=== PATIENT | female | born 1995 | race Caucasian/White ===

== ENCOUNTER 2020-01-14 17:18 | Outpatient (CLI) | payer OTHER ==
[2020-01-14] MEDS ORDERED: SODIUM CHLORIDE FLUSH 0.9% 10 ML SYRINGE IVP PRN (18:05)
[2020-01-14] MEDS ORDERED: miSOPROStoL 100 MCG TABLET BC SCH (18:15)
[2020-01-14 22:33] VITALS: BP 106/69
--- NOTE | 2020-01-16 11:37 | PROVIDER PROGRESS NOTE ---
- HPI Current : Current 2 Vital Signs Temperature 98.4 F 01/14/20 19:00 Heart Rate 89 01/14/20 19:00 Respiratory Rate 18 01/14/20 19:00 Blood Pressure 121/68 01/14/20 19:00 O2 Saturation 100 01/14/20 19:00 Temperature 98.4 F 01/14/20 19:00 Heart Rate 74 01/14/20 22:15 Respiratory Rate 18 01/14/20 22:15 Blood Pressure 106/69 01/14/20 22:15 O2 Saturation 100 01/14/20 22:15 - Exam GEN: NAD CV: RR RESP: normal effort SVE: 2/60/-2 EFM:140 mod pratik 15x15 accels no decel TOCO: irritable Vertex by bedside us - Procedures OB Procedure Performed: NST Diagnosis/Indication for NST: Other (outpatient cervical ripening) NST Procedure: EFM: 140 mod pratik 15x15 accels no decel TOCO: irritable Service Date of procedure: 01/14/20 Procedure Details: Outpatient cervical ripening Confirmed verex by bedside US Consent obtained Misoprostol 50 mcg BC Observe with extended monitoring x 4 hours If not in labor and does nto ahve advanced cervical dilation at 4 hours, then DC home for in-patient IOL 01/15/20 Cat I tracing
== END 2020-01-14 23:10 | disposition home or self-care (01) ==
LOC: FBP 17:18 → WFO 17:18 → FBP 17:20 → WFO 23:10
PROVIDERS: ATTEND Obstetrics & Gynecology
DX: O48.0 Post-term pregnancy (principal); Z3A.41 41 weeks gestation of pregnancy
CPT/HCPCS: 99213; A9270; 85025

== ENCOUNTER 2020-01-15 07:42 | Inpatient (IN) | payer OTHER ==
--- NOTE | 2020-01-15 09:21 | HISTORY & PHYSICAL EXAMINATION ---
Admit History - Visit Reason Visit Reason: Other (Post-dates induction of labor) - : 2 Parity: 1 Care: positive: Other (Transfer of care for NHGA at 39 wga) Risk/History: positive: Other (suspected macrosomia) Complications This : positive: None Smoking Status: Former smoker - Mother's Labs Mother's Blood Type: positive: A Mother's RH: positive: Positive GBS: positive: Group B Strep Positive Rubella Status: positive: Immune - Other Maternal History Other Maternal History: nitial U/S: 06/13/2019 @ 9.3wks c/w LMP dating. A pos/Rubella immune Genetic testing: not performed FAS: 08/21/2019 WNL. Posterior placenta, no previa. 3VC. Size c/w dating. BHASKAR WNL. Glucola 83 TDAP 12/15/2019 GBS POSITIVE HSV: denies Breast pump Rx previously provided MOD: Anticipate ; expecting a girl - Justyn; desires epidural for pain management Meds/Allgy - Allergies Allergies/Adverse Reactions: Allergies Allergy/AdvReac Type Severity Reaction Status Date / Time No Known Drug Allergies Allergy Verified 01/15/20 09:28 Review of Systems - Other Findings Other Findings: As per HPI otherwise remaining systems are negative. Physical - Abdominal Exam Vital Signs: 98.2 91 123/72 18 100 Contraction Frequency (min/apart): irreg Contraction Intensity: positive: Mild to moderate - Monitoring Heart Rate Baseline: 140 Strip Review: positive: Category I - Presentation Presentation: positive: Vertex - Vaginal Exam Membranes: positive: Membranes intact Dilation (in cm): 3 Plan for Labor - Plan For Labor Plan for Labor: IOL: Received misoprostol 50 mcg BCx1 outpatient Will continue with 1-2 doses of miso and then re-check for favorability Start pitocin when favorable GBS positive: start ampicillin when active, ruptured, or with coronado balloon placement FWB: vertex, Cat I tracing, GBS positive, suspected macrosomia -CEFM -Ampicillin per GBs ppx PAIN: Epidural as desired -No nitrous during COVID pandemic -Fentanyl prior to epidural, max cumulative dose 200 mcg and not be given after 7 cm Observation for cervical ripening and convert to in-patient admission when active
[2020-01-15] MEDS ORDERED: SODIUM CHLORIDE FLUSH 0.9% 10 ML SYRINGE IVP PRN (09:31)
[2020-01-15] MEDS ORDERED: METOCLOPRAMIDE 10 MG TABLET PO PRN (09:31)
[2020-01-15] MEDS ORDERED: CARBOPROST TROMETHAMINE 250 MCG/ML AMP IM PRN (09:31)
[2020-01-15] MEDS ORDERED: OXYTOCIN/SODIUM CHLORIDE 500 ML IV PRN (09:31)
[2020-01-15] MEDS ORDERED: ONDANSETRON 4 MG/2 ML VIAL IVP PRN (09:31)
[2020-01-15] MEDS ORDERED: ONDANSETRON ODT 4 MG TABLET TL PRN (09:31)
[2020-01-15] MEDS ORDERED: METHYLERGONOVINE 0.2 MG/ML VIAL IM PRN (09:31)
[2020-01-15] MEDS ORDERED: fentaNYL 100 MCG/2 ML VIAL IVP PRN (09:31)
[2020-01-15] MEDS ORDERED: miSOPROStoL 200 MCG TABLET PR PRN ×2 (09:31)
[2020-01-15] MEDS ORDERED: TERBUTALINE 1 MG/ML VIAL SUBQ PRN (09:31)
[2020-01-15] MEDS ORDERED: ACETAMINOPHEN 325 MG TABLET PO PRN (09:31)
[2020-01-15] MEDS ORDERED: METOCLOPRAMIDE 10 MG/2 ML VIAL IVP PRN (09:31)
[2020-01-15] MEDS ORDERED: OXYTOCIN/SODIUM CHLORIDE 500 ML IV SCH (10:00)
[2020-01-15] MEDS: miSOPROStoL 100 MCG TABLET BC SCH ×3 (11:09→21:14)
[2020-01-15 11:13] LABS: BASOPHILS % (AUTO) 0.2 %; EOSINOPHILS # (AUTO) 0.1 10^3/uL (0.0-0.7); EOSINOPHILS % (AUTO) 0.4 %; HGB - HEMOGLOBIN 11.4 g/dL (12.0-16.0); LYMPHOCYTES % (AUTO) 17.8 %; MEAN CORPUSCULAR HEMOGLOBIN 25.7 pg (27.0-31.0); MEAN CORPUSCULAR HGB CONC 31.4 g/dL (32.0-36.0); MEAN CORPUSCULAR VOLUME 81.8 fL (81.0-99.0); MEAN PLATELET VOLUME 10.9 fL (7.9-10.8); MONOCYTES % (AUTO) 8.6 %; NEUTROPHILS # (AUTO) 8.2 10^3/uL (1.5-6.6); NEUTROPHILS % (AUTO) 72.2 %; PLT - PLATELET COUNT 253 10^3/uL (130-450); RED BLOOD COUNT 4.44 10^6/uL (4.20-5.40); RED CELL DISTRIBUTION WIDTH 15.2 % (12.0-15.0); WHITE BLOOD COUNT 11.3 x10^3/uL (4.8-10.8)
--- NOTE | 2020-01-15 11:32 | PROVIDER PROGRESS NOTE ---
Subjective - Prog Note Date Prog Note Date: 01/15/20 Prog Note Time: 11:29 - Subjective Pt reports feeling: Improved Subjective: Pt is here for cervical ripening. She has received her first dose. She is 41 weeks. last child weighed 9lb 8 oz. Group B pos Objective - Lab Results Fish Bones: 01/15/20 11:05 Other Labs: Lab Results x24hrs 01/15/20 Range/Units 11:05 WBC 11.3 H (4.8-10.8) x10^3/uL RBC 4.44 (4.20-5.40) 10^6/uL Hgb 11.4 L (12.0-16.0) g/dL Hct 36.3 L (37.0-47.0) % MCV 81.8 (81.0-99.0) fL MCH 25.7 L (27.0-31.0) pg MCHC 31.4 L (32.0-36.0) g/dL RDW 15.2 H (12.0-15.0) % Plt Count 253 (130-450) 10^3/uL MPV 10.9 H (7.9-10.8) fL Neut # (Auto) 8.2 H (1.5-6.6) 10^3/uL Lymph # (Auto) 2.0 (1.5-3.5) 10^3/uL [place] # (Auto) 1.0 (0.0-1.0) 10^3/uL Eos # (Auto) 0.1 (0.0-0.7) 10^3/uL Baso # (Auto) 0.0 (0.0-0.1) 10^3/uL Absolute Nucleated RBC 0.00 x10^3/uL Nucleated RBC % 0.0 /100WBC Assessment/Plan - Problem List (1) 41 weeks gestation of Impression: cervical ripening Misoprostil, Cook, pit, AROM (2) GBS (group B Streptococcus carrier), +RV culture, currently Impression: Start Antibiotics when inlabor or ruptured.
--- NOTE | 2020-01-15 16:28 | PROVIDER PROGRESS NOTE ---
Labor Progress Note - Uterine Monitoring Contraction Frequency (min/apart): 2.5-4 Contraction Intensity: positive: Mild Uterine Resting Tone: positive: Soft - Monitoring Monitor Mode: positive: External ultrasound Heart Rate Baseline: 140 Heart Rate Variability: positive: Minimal (0-5 bpm) Accelerations: positive: Present, 15x15 Decelerations: positive: Variable (minimal) Strip Review: positive: Category I - Labor Progress Note Labor Progress Note/Additional Text: Pt has received 2 doses of misoprostal. Slow progress. needs additional Miso.
[2020-01-15] MEDS ORDERED: SODIUM CHLORIDE FLUSH 0.9% 10 ML SYRINGE IVP SCH (17:00)
[2020-01-16] MEDS ORDERED: LACTATED RINGERS 1,000 ML IV ONE (00:54)
[2020-01-16] MEDS ORDERED: OXYTOCIN/SODIUM CHLORIDE 500 ML IV ONE (00:55)
[2020-01-16] MEDS: LACTATED RINGERS 1,000 ML IV SCH ×2 (01:08→09:22)
[2020-01-16] MEDS ORDERED: AMPICILLIN 2 GM in SODIUM CHLORIDE 0.9% MINIBAG 100 ML IV SCH (03:00)
--- NOTE | 2020-01-16 04:14 | ANESTHESIA ---
Pre-Anesthesia VS, & Labs - Diagnosis active labor - Procedure vaginal delivery Vital Signs: Temp Pulse Resp BP Pulse Ox 36.7 C 84 16 98/51 L 100 01/16/20 01:00 01/16/20 01:00 01/16/20 01:00 01/16/20 01:00 01/15/20 17:02 Height 5 ft 7 in Weight (kg) 118.841 kg - NPO Other (clear liquids) - Is Patient ?: Yes - Lab Results Current Lab Results: Laboratory Tests 01/15/20 11:05: WBC 11.3 H, RBC 4.44, Hgb 11.4 L, Hct 36.3 L, MCV 81.8, MCH 25.7 L, MCHC 31.4 L, RDW 15.2 H, Plt Count 253, MPV 10.9 H, Neut # (Auto) 8.2 H, Lymph # (Auto) 2.0, [place] # (Auto) 1.0, Eos # (Auto) 0.1, Baso # (Auto) 0.0, Absolute Nucleated RBC 0.00, Nucleated RBC % 0.0 Fish Bones: 01/15/20 11:05 Home Medications and Allergies Active Medications Acetaminophen (Tylenol) 650 mg PO Q6H PRN PRN Reason: Pain or Fever Fentanyl (Fentanyl) 50 mcg IVP Q1H PRN PRN Reason: PAIN Lactated Ringer's (Lr) 1,000 mls @ 100 mls/hr IV .Q10H [facility] Last Admin: 01/16/20 01:08 Dose: 100 mls/hr Oxytocin/Sodium Chloride (Pitocin/Sodium Chloride) 500 mls @ 1 mls/hr IV TITR YASMIN; Protocol Last Admin: 01/16/20 01:14 Dose: 1 milliunit/min, 1 mls/hr Oxytocin/Sodium Chloride (Pitocin/Sodium Chloride) 500 mls @ 999 mls/hr IV PRN PRN; Protocol PRN Reason: POST- HEMORR PREVENTION Ampicillin Sodium 1 gm/ Sodium (Chloride) 50 mls @ 200 mls/hr IV Q4HR [facility] Methylergonovine Maleate (Methergine Inj) 0.2 mg IM Q4HR PRN PRN Reason: Post- Hemorrhage Metoclopramide HCl (Reglan) 10 mg PO Q6H PRN PRN Reason: Nausea / Vomiting Metoclopramide HCl (Reglan Inj) 10 mg IVP Q6H PRN PRN Reason: Nausea / Vomiting Misoprostol (Cytotec) 50 mcg BC Q4HR [facility] Last Admin: 01/15/20 21:14 Dose: 50 mcg Ondansetron HCl (Zofran Inj) 4 mg IVP Q4HR PRN PRN Reason: Nausea / Vomiting Ondansetron HCl (Zofran Odt) 4 mg TL Q4HR PRN PRN Reason: Nausea / Vomiting Sodium Chloride (Normal Saline Flush 0.9%) 10 ml IVP 0100,0900,1700 [facility] Last Admin: 01/16/20 01:08 Dose: 10 ml Sodium Chloride (Normal Saline Flush 0.9%) 10 ml IVP PRN PRN PRN Reason: NEEDED PER PROVIDER ORDERS Terbutaline Sulfate (Terbutaline) 0.25 mg SUBQ Q1H PRN PRN Reason: tachysytole Allergies/Adverse Reactions: Allergies Allergy/AdvReac Type Severity Reaction Status Date / Time No Known Drug Allergies Allergy Verified 01/15/20 09:28 Anes History & Medical History - Anesthetic History Anesthesia Complications: reports: No previous complications - Medical History Cardiovascular: reports: None Pulmonary: reports: None Gastrointestinal: reports: None Urinary: reports: None Neuro: reports: None Musculoskeletal: reports: None Endocrine/Autoimmune: reports: None Blood Disorders: reports: None Skin: reports: None Smoking Status: Former smoker (quit 3 years ago) Psychosocial: reports: No issues indicated - Obstetrical History : 2 Parity: 1 Events: positive: None Complications: positive: None Exam General: Alert, Oriented x3, Cooperative, No acute distress Dental: WNL Mouth Openin Fingerbreadth Neck Mobility: Normal Mallampati classification: III Mental/Cognitive Status: Alert/Oriented X3, Normal for patient Plan Anesthesia Type: Epidural Consent for Procedure(s) Verified and Reviewed: Yes Code Status: Attempt Resuscitation ASA classification: 2-Mild systemic disease Is this case an emergency?: No
[2020-01-16] MEDS ORDERED: NALBUPHINE 10 MG/ML AMP IVP PRN (04:37)
[2020-01-16] MEDS ORDERED: ROPIVACAINE 0.2% 200 MG/100 ML BAG EP PRN (04:37)
[2020-01-16] MEDS ORDERED: ePHEDrine 50 MG/ML VIAL IVP PRN (04:37)
[2020-01-16] MEDS ORDERED: ONDANSETRON 4 MG/2 ML VIAL IVP PRN (04:37)
[2020-01-16] MEDS ORDERED: NALOXONE 0.4 MG/ML VIAL IVP PRN (04:37)
[2020-01-16] MEDS ORDERED: SODIUM CHLORIDE 0.9% IV SCH (07:00)
[2020-01-16] MEDS ORDERED: AMPICILLIN IV SCH (07:00)
[2020-01-16] MEDS ORDERED: OXYTOCIN 10 UNIT/ML VIAL IM ONE (10:27)
[2020-01-16] MEDS ORDERED: OXYTOCIN 10 UNIT/ML VIAL ONE (10:27)
[2020-01-16] MEDS ORDERED: miSOPROStoL 200 MCG TABLET ONE (10:27)
[2020-01-16] MEDS ORDERED: METHYLERGONOVINE 0.2 MG/ML VIAL ONE (10:28)
[2020-01-16] MEDS ORDERED: TRANEXAMIC ACID 1,000 MG/10 ML VIAL ONE (10:37)
[2020-01-16] MEDS ORDERED: ceFAZolin 2 GM in SODIUM CHLORIDE 0.9% 100ML 100 ML IV STA (10:45)
[2020-01-16] MEDS: miSOPROStoL 100 MCG TABLET BC SCH (11:22)
[2020-01-16] MEDS ORDERED: SIMETHICONE CHEW 80 MG TABLET PO PRN (11:25)
[2020-01-16] MEDS ORDERED: DOCUSATE SODIUM 100 MG CAPSULE PO PRN (11:25)
[2020-01-16] MEDS ORDERED: TRANEXAMIC ACID 1,000 MG in SODIUM CHLORIDE 0.9% 100ML 100 ML IV STA (11:26)
[2020-01-16] MEDS ORDERED: LACTATED RINGERS 1,000 ML IV SCH (12:00)
[2020-01-16] MEDS ORDERED: ACETAMINOPHEN 500 MG TABLET PO SCH (12:00)
--- NOTE | 2020-01-16 12:00 | DELIVERY NOTE ---
Delivery Note - Labor Labor: positive: Induced by oxytocin - Infant Delivery Method Delivery Method: positive: Spontaneous vaginal delivery - Cervical Ripening Method Cervical Ripening Method: positive: Misoprostil - Presentation Presentation: positive: Vertex - Nuchal Cord Nuchal Cord: positive: None - Anesthetic Anesthetic Type: - Amniotic Fluid Description Amniotic Fluid Description: positive: Clear - Episiotomy Type Episiotomy Type: positive: None - Laceration Laceration: positive: None - Delivery Outcome Delivery Outcome: positive: Livebirth - [place]: positive: Placed in direct skin contact with mother, Stimulated, [place] used [place] sex: positive: Female - Cord Cord: positive: 3 vessels - Placenta Placenta: positive: Intact, Expressed - Estimated Blood Loss Estimated Blood Loss (in cc): 600 - Post Delivery Events Post Delivery Events: positive: Hemorrhage - Delivery Comments (Free Text/Narrative) Delivery Comments (Free Text/Narrative): Patient is a 24 yo admitted at 41w1 for post dates induction of labor. She had received one dose of misoprostol 50 mcg BC as an outpatient on 01/14/20 and was observed for 4 hours. She then presented for induction of labor. She received 3 additional doses of misoprostol. She was then started on pitocin to max dose of 3 mU/min. She had an epidural for pain management. Cat I tracing throughout. Noted to be complete at 10:07 am. Membranes were intact at time of complete dilation and were protruding at the introitus. Membranes ruptured when under buttocks draping was placed to begin second stage. STAGE II: Patient pushed well for 11 minutes to deliver a viable female infant from vertex. RASHAUN presentation. Infant delivered easily with right arm anterior. No nuchal cord. was delivered to mother's chest. Cord was clamped x2 and cut after pulsations had ceased. Weight and Apgars are pending. STAGE III: Placenta delivered with manual expression and gentle downward traction on the umbilical cord. It was examined and found to be intact. After delivery of the placenta, there was a large gush of blood due to uterine atony. Patient received 10 units IM pitocin followed with methergine 0.2 mg IM as well as misoprostol 600 mcg BC. PPH resolved with manual sweep of the uterus and bimanual massage. Patient was given 2g IV cefazolin post-manual sweep. IV pitocin continued after resolution of hemorrhage. Total EBL estimated to be 600 cc.
[2020-01-16] MEDS: IBUPROFEN 600 MG TABLET PO SCH (12:57)
[2020-01-16 15:31] LABS: BASOPHILS % (AUTO) 0.3 %; EOSINOPHILS % (AUTO) 0.1 %; HGB - HEMOGLOBIN 9.4 g/dL (12.0-16.0); LYMPHOCYTES # (AUTO) 1.5 10^3/uL (1.5-3.5); LYMPHOCYTES % (AUTO) 9.6 %; MEAN CORPUSCULAR HEMOGLOBIN 26.1 pg (27.0-31.0); MEAN CORPUSCULAR HGB CONC 32.1 g/dL (32.0-36.0); MEAN CORPUSCULAR VOLUME 81.4 fL (81.0-99.0); MEAN PLATELET VOLUME 11.1 fL (7.9-10.8); MONOCYTES # (AUTO) 0.9 10^3/uL (0.0-1.0); NEUTROPHILS # (AUTO) 12.8 10^3/uL (1.5-6.6); NEUTROPHILS % (AUTO) 83.3 %; PLT - PLATELET COUNT 183 10^3/uL (130-450); RED CELL DISTRIBUTION WIDTH 15.3 % (12.0-15.0); WHITE BLOOD COUNT 15.4 x10^3/uL (4.8-10.8)
[2020-01-17 05:42] LABS: BASOPHILS % (AUTO) 0.2 %; EOSINOPHILS # (AUTO) 0.1 10^3/uL (0.0-0.7); EOSINOPHILS % (AUTO) 0.5 %; HGB - HEMOGLOBIN 8.5 g/dL (12.0-16.0); LYMPHOCYTES # (AUTO) 1.8 10^3/uL (1.5-3.5); MEAN CORPUSCULAR HGB CONC 31.1 g/dL (32.0-36.0); MEAN CORPUSCULAR VOLUME 83.5 fL (81.0-99.0); MONOCYTES % (AUTO) 7.7 %; NEUTROPHILS % (AUTO) 76.6 %; PLT - PLATELET COUNT 182 10^3/uL (130-450); RED BLOOD COUNT 3.27 10^6/uL (4.20-5.40); RED CELL DISTRIBUTION WIDTH 15.4 % (12.0-15.0)
[2020-01-17] MEDS: IBUPROFEN 600 MG TABLET PO SCH (08:15)
[2020-01-17 08:29] VITALS: BP 124/59
--- NOTE | 2020-01-17 11:12 | Discharge Plan ---
Discharge Plan Problem Reviewed?: Yes Disposition: 01 Home, Self Care Condition: Good Diet: Regular Activity Restrictions: Additional Comments (Nothing in the vagina for 6 weeks: No intercourse, tampons, douching Call for: -Fever greater than 100.5 - Pain that does not improve with pain medication -Heavy bleeding in which you are soaking a pad an hour for 2 hours in a row) Shower Restrictions: No (No baths for 4 weeks) Weight Bearing: Full Weight Additional Instructions or Follow Up instructions: Follow-up in 6 weeks No Smoking: If you smoke, Please STOP! Call for help. Follow-up with: DEQUAN HORTA MD, PHD [Physician No Access] -
--- NOTE | 2020-01-17 11:14 | PROVIDER PROGRESS NOTE ---
Subjective - Prog Note Date Prog Note Date: 01/17/20 Prog Note Time: 11:12 - Subjective Pt reports feeling: Improved Subjective: Patient is up and ambulating, tolerating po, and voiding. Pain is well managed with pain medications. Lochia wnl Objective - Vital Signs/Intake & Output Reviewed Vital Signs: Yes Vital Signs: Vital Signs x48h Temp Pulse Resp BP Pulse Ox 01/17/20 08:00 97.9 F 93 17 124/59 L 100 01/17/20 04:20 100 18 112/64 100 Intake & Output: Intake & Output 01/14/20 01/15/20 01/16/20 01/17/20 23:59 23:59 23:59 23:59 Intake Total 100 3683.333 Output Total 1032 Balance 100 2651.333 - Objective General Appearance: positive: No acute distress Respiratory: positive: Chest non-tender, No respiratory distress Cardiovascular: positive: Other (RR) Abdomen: positive: Non-tender, Other (Fundus firm below the umbilicus) Extremities: positive: Non-tender Neurologic/Psychiatric: positive: Oriented x3 - Lab Results Fish Bones: 01/17/20 05:30 Other Labs: Lab Results x24hrs 01/17/20 01/16/20 Range/Units 05:30 15:13 WBC 13.0 H 15.4 H (4.8-10.8) x10^3/uL RBC 3.27 L 3.60 L (4.20-5.40) 10^6/uL Hgb 8.5 L 9.4 L (12.0-16.0) g/dL Hct 27.3 L 29.3 L (37.0-47.0) % MCV 83.5 81.4 (81.0-99.0) fL MCH 26.0 L 26.1 L (27.0-31.0) pg MCHC 31.1 L 32.1 (32.0-36.0) g/dL RDW 15.4 H 15.3 H (12.0-15.0) % Plt Count 182 183 (130-450) 10^3/uL MPV 11.0 H 11.1 H (7.9-10.8) fL Neut # (Auto) 10.0 H 12.8 H (1.5-6.6) 10^3/uL Lymph # (Auto) 1.8 1.5 (1.5-3.5) 10^3/uL [place] # (Auto) 1.0 0.9 (0.0-1.0) 10^3/uL Eos # (Auto) 0.1 0.0 (0.0-0.7) 10^3/uL Baso # (Auto) 0.0 0.0 (0.0-0.1) 10^3/uL Absolute Nucleated RBC 0.00 0.00 x10^3/uL Nucleated RBC % 0.0 0.0 /100WBC Assessment/Plan - Problem List (1) Vaginal delivery Impression: PPD #1 s/p Doing well Meeting goals for discharge Routine DC instructions given Declines DC meds Rh pos/Rub imm
--- NOTE | 2020-01-17 11:17 | DISCHARGE SUMMARY ---
"Discharge Summary Discharge Date: 01/17/20 Discharging Provider: Shawn Code Status: Attempt Resuscitation Condition at Discharge: Good Discharge Disposition: 01 Home, Self Care Discharge [facility] - DIAGNOSES Admission Diagnoses: IUP at 41w1 day EGA GBs positive Discharge Diagnoses with Status of Each Condition: Same and delivery of term gestation hemorrhage - HPI History of Present Illness: Patient is a 24 yo admitted at 41w1 for post dates induction of labor. She had received one dose of misoprostol 50 mcg BC as an outpatient on 01/14/20 and was observed for 4 hours. She then presented for induction of labor. has been uncomplicated other than suspected LGA infant and GSb positive. - CONSULTS | PROCEDURES Procedures: Spontaneous vaginal delivery - HOSPITAL COURSE Hospital Course: Patient is a 24 yo admitted at 41w1 for post dates induction of labor. She had received one dose of misoprostol 50 mcg BC as an outpatient on 01/14/20 and was observed for 4 hours. She then presented for induction of labor. She received 3 additional doses of misoprostol. She was then started on pitocin to max dose of 3 mU/min. She had an epidural for pain management. Cat I tracing thr oughout. Noted to be complete at 10:07 am. Membranes were intact at time of complete dilation and were protruding at the introitus. Membranes ruptured when under buttocks draping was placed to begin second stage. STAGE II: Patient pushed well for 11 minutes to deliver a viable female infant from vertex. RASHAUN presentation. delivered easily with right arm anterior. No nuchal cord. Infant was delivered to mother's chest. Cord was clamped x2 and cut after pulsations had ceased. Weight and Apgars are pending. STAGE III: Placenta delivered with manual expression and gentle downward tract ion on the umbilical cord. It was examined and found to be intact. After delivery of the placenta, there was a large gush of blood due to uterine atony. Patient received 10 units IM pitocin followed with methergine 0.2 mg IM as well as misoprostol 600 mcg BC. PPH resolved with manual sweep of the uterus and bimanual massage. Patient was given 2g IV cefazolin post-manual sweep. IV pitocin continued after resolution of hemorrhage. Total EBL estimated to be 600 cc. Post course was uncomplicated. HCT of PPD#1 was 27.3. Patient will continue home prescription of oral iron. Declined discharge medications. - ALLERGIES Allergies/Adverse Reactions: Allergies Allergy/AdvReac Type Severity Reaction Status Date / Time No Known Drug Allergies Allergy Verified 01/15/20 09:28 - MEDICATIONS Home Medications Other | Comments: Declines discharge prescriptions Will continue oral iron supplementation upon discharge - LABS Result Diagrams: 01/17/20 05:30 - FOLLOW UP Follow Up: 6 weeks visit - TIME SPENT Time Spent in Discharge (Minutes): 30"
--- NOTE | 2020-01-17 13:36 | Labor Flowsheet ---
Labor Flowsheet Datetime Report Generated by CPN: 01/17/2020 13:36 Datetime: 01/17/2020 07:54 VITAL SIGNS NBP Sys/Abbi/Mean (mmHg): 124 : 59 : 75 Pulse: 93 Datetime: 01/16/2020 18:04 SpO2 (%): 100 Datetime: 01/16/2020 14:05 Provider Notified (Name): Dr. McSorley Communication Comments: Notified provider that patient continues with moderate bleeding. Provider will evaluate patient. Datetime: 01/16/2020 13:35 Stage of : Recovery Datetime: 01/16/2020 11:45 Temperature (C): 37.2 Temperature Route: Oral Datetime: 01/16/2020 11:20 Medication Comments: Cefazolin infused Datetime: 01/16/2020 10:44 LaborFlag: Labor Datetime: 01/16/2020 10:26 Cervical Ripening Agents: Cytotec @ 600 Datetime: 01/16/2020 10:18 UTERINE ACTIVITY Monitor Mode: External Frequency (min): 2.5-4 Quality: Moderate Duration (sec): 60-130 Pattern: Normal: <= 5 Contractions in 10 Minutes Resting Tone (Palpate): Relaxed ASSESSMENT A Monitor Mode: External US FHR Baseline Rate : 140 FHR Baseline Changes: No Baseline Change Variability: Moderate 6-25 bpm Accelerations: 10X10 Category: Category II Comments: audible decel with filiberto to 90s 3 minutes prior to delivery Datetime: 01/16/2020 10:13 MEDICATIONS Pitocin (milliunits): Started @ 1 Datetime: 01/16/2020 10:11 Membrane Status: Ruptured Membranes Rupture Method: Spontaneous Amniotic Fluid Color: Clear Amniotic Fluid Amount: Moderate Datetime: 01/16/2020 10:08 COMMUNICATION Communication: Provider at Bedside Datetime: 01/16/2020 10:00 Decelerations: Prolonged I/O Interventions: Frye Discontinued Patient Care Comments: 30ml UOP Datetime: 01/16/2020 09:53 Actions for Decelerations: Oxygen Applied PATIENT CARE Oxygen Amount (LPM): 5 Datetime: 01/16/2020 08:45 Contraction Comments: poor tracing of contractions d/t tele replaced low battery Datetime: 01/16/2020 08:33 Provider Reviewed Strip: Yes Datetime: 01/16/2020 07:15 Patient Position/Activity: Left Lateral Datetime: 01/16/2020 07:00 Pitocin Checklist: At Least 1 Acceleration of 15 bpm x 15 Seconds in 30 Minutes or Adequate Variabi lity Monitor Interventions for FHR: Ultrasound Adjusted Datetime: 01/16/2020 06:39 Respirations: 16 Datetime: 01/16/2020 06:16 Pain Coping: Sleeping Datetime: 01/16/2020 06:00 Monitor Interventions for UA: Esto Adjusted Datetime: 01/16/2020 05:30 ANESTHESIA Anesthesia Plans: Epidural Anesthesia Level Check: T10- Umbilicus Datetime: 01/16/2020 04:51 PAIN Pain Scale: 0 Datetime: 01/16/2020 04:28 Epidural Procedure: Loading Dose Epidural Procedure Other: Pump Started Datetime: 01/16/2020 04:20 PROCEDURE TIME OUT Procedure Type: 0420 Procedure Verify: Correct Patient Identity; Correct Side and Site are Marked; Accurate Procedure Co nsent Form; Agreement on Procedure to be Done; Correct Patient Position Datetime: 01/16/2020 04:12 Consults: Anesthesia Anesthesia Comments: G[employer] here to place epidural Datetime: 01/16/2020 03:41 Pain Presence: Intermittent Pain Type: Cramping Pain Location: Abdomen Pain Goal: 0 Datetime: 01/16/2020 03:35 VAGINAL EXAM Dilatation (cm): 5.0 Effacement (%): 90 Station: -2 Exam by: Hmahala Datetime: 01/16/2020 03:10 Antibiotics: Ampicillin IV 2 Gm Datetime: 01/16/2020 02:56 Hygiene: Complete Bath Datetime: 01/16/2020 02:12 Cervical Ripening Agents Other: 2 Datetime: 01/16/2020 01:26 TEACHING Instructional Method: Verbal Plan of Care: Plan of Care Discussed; Induction Unit Routine: Monitoring; IV Pumps Labor/Induction: Induction Pain Management: Comfort Measures Medications: Pitocin Related: Hydration; Activity and Rest Datetime: 01/15/2020 20:01 MATERNAL ASSESSMENT Level of Consciousness: Alert Headache: Denies Breath Sounds, Left: Clear and Equal Breath Sounds, Right: Clear and Equal Nausea/Vomiting: Denies RUQ Epigastric Pain: Denies Datetime: 01/15/2020 18:57 Vaginal Bleeding: None Cervix, Consistency: Soft Cervix, Position: Posterior
== END 2020-01-17 13:09 | disposition home or self-care (01) | DRG 806 ==
LOC: WFO 07:42 → FBP 07:44 → WFO 09:30 → FBP 09:31 → OBSVTOIN 01-16 05:24
PROVIDERS: ADMIT Obstetrics & Gynecology; ATTEND Obstetrics & Gynecology
PROC: 10E0XZZ Delivery of Products of Conception, External Approach (ICD-10-PCS; principal; 2020-01-16)
PROC: 10907ZC Drainage of Amniotic Fluid, Therapeutic from Products of Conception, Via Natural or Artificial Opening (ICD-10-PCS; 2020-01-16)
PROC: 3E033VJ Introduction of Other Hormone into Peripheral Vein, Percutaneous Approach (ICD-10-PCS; 2020-01-16)
DX: O48.0 Post-term pregnancy (principal); O72.1 Other immediate postpartum hemorrhage; Z37.0 Single live birth; O99.824 Streptococcus B carrier state complicating childbirth; Z3A.41 41 weeks gestation of pregnancy; Z87.891 Personal history of nicotine dependence
CPT/HCPCS: 36415; 85025; A9270; J2210; J7120